=== PATIENT | male | born 1940 | race African-American/Black ===

== ENCOUNTER → 2024-05-26 | Outpatient (REF) | payer MEDICARE ==
[~2024-05-26] MED LIST: IOPAMIDOL 370 MG/ML 100 ML INFUS..BTL INJ ONE
[2024-05-26 09:35] LABS: CREATININE, SERUM 0.87 mg/dL (0.72-1.25)
== END ==
LOC: CT 08:29
PROVIDERS: ATTEND Internal Medicine
DX: R16.0 Hepatomegaly, not elsewhere classified (principal)
CPT/HCPCS: 36415; 74160; 82565; 84520; Q9967